=== PATIENT | female | born 1940 | race Caucasian/White ===

== ENCOUNTER 2020-06-02 15:31 | Emergency (ER) | payer MEDICARE, MEDICAID ==
[~2020-06-02] VITALS: Ht 152.4 cm; Wt 61.2 kg
[2020-06-02 16:33] LABS: HEMATOCRIT 38.2 % (37.0-47.0); MEAN CORPUSCULAR HGB 27.7 pg (27.0-31.0); MEAN CORPUSCULAR HGB CONC 30.1 g/dl (33.0-37.0); MEAN PLATELET VOLUME 9.8 fl (9.6-12.3); PLATELET COUNT AUTOMATED 189 10*3/uL (130-400); RED BLOOD COUNT 4.15 10*6/uL (4.10-5.10); RED CELL DISTRI WIDTH 21.2 % (0-14.5); WHITE BLOOD COUNT 10.6 10*3/uL (4.8-10.8)
[2020-06-02 16:53] LABS: ALKALINE PHOSPHATASE 125 U/L (45-117); BUN 19 mg/dl (7-24); CHLORIDE 105 mmol/L (98-107); CREATININE 1.13 mg/dL (0.55-1.02); LIPASE 50 U/L (73-393); POTASSIUM 4.6 mmol/L (3.5-5.1); SGOT/AST 23 IU/L (3-35); SGPT/ALT 16 U/L (12-78); SODIUM 136 mmol/L (136-145); TOTAL PROTEIN 7.8 gm/dL (6.4-8.2)
[2020-06-02 16:55] LABS: TROPONIN I < 0.015 ng/ml (<0.045)
[2020-06-02 17:15] LABS: TOTAL CELLS COUNTED 100 #CELLS
[2020-06-02 17:17] LABS: PLATELET SUFFICIENCY NORMAL (NORMAL)
[2020-06-02 17:37] LABS: BILIRUBIN Negative (Negative); BLOOD 3+ (Negative); CLARITY Turbid (Clear); COLOR Dark Yellow (Yellow); GLUCOSE Negative (Negative); KETONE Trace (Negative); LEUKO ESTERASE 3+ (Negative); NITRITE Positive (Negative); SPECIFIC GRAVITY 1.015 (1.001-1.030)
[2020-06-02 17:39] LABS: ACT PARTIAL THROMBO TIME 24.1 SECONDS (20.0-32.1); INTERNATIONAL NORM RATIO 1.1 (2.0-3.5)
[2020-06-02 17:58] LABS: WBC TNTC wbc/hpf (0-5)
[2020-06-02] MEDS ORDERED: CIPRO250 MG PO (17:58)
== END 2020-06-02 18:03 | disposition other institution (70) ==
LOC: ED 15:31
PROVIDERS: Emergency Medicine
DX: N39.0 Urinary tract infection, site not specified (principal)

== ENCOUNTER → 2021-04-18 | Outpatient (CLI) | payer MEDICARE, MEDICAID ==
[~2021-04-18] MED LIST: CIPRO250 MG PO
== END | disposition home or self-care (01) ==
LOC: MRI 09:00
PROVIDERS: ATTEND Internal Medicine
DX: M17.11 Unilateral primary osteoarthritis, right knee (principal); M25.461 Effusion, right knee; M71.21 Synovial cyst of popliteal space [Baker], right knee

== ENCOUNTER → 2021-05-13 | Outpatient (CLI) | payer MEDICARE, MEDICAID | END | disposition home or self-care (01) | LOC: ORTHO 00:33 | PROVIDERS: ATTEND Orthopaedic Surgery | DX: M17.11 Unilateral primary osteoarthritis, right knee (principal); M25.761 Osteophyte, right knee ==

== ENCOUNTER → 2021-06-15 | Outpatient (CLI) | payer MEDICARE, MEDICAID | LOC: ORTHO 00:28 | PROVIDERS: ATTEND Orthopaedic Surgery | DX: M47.817 Spondylosis without myelopathy or radiculopathy, lumbosacral region (principal); I70.0 Atherosclerosis of aorta; M48.062 Spinal stenosis, lumbar region with neurogenic claudication; M85.88 Other specified disorders of bone density and structure, other site; Z90.49 Acquired absence of other specified parts of digestive tract; Z96.662 Presence of left artificial ankle joint ==

== ENCOUNTER 2022-11-12 10:21 | Emergency (ER) | payer MEDICARE, MEDICAID ==
[~2022-11-12] VITALS: Ht 149.8 cm; Wt 74.8 kg
[2022-11-12 10:57] LABS: HEMATOCRIT 40.3 % (37.0-47.0); MEAN CELL VOLUME 99.5 fl (81.0-99.0); MEAN CORPUSCULAR HGB 32.6 pg (27.0-31.0); MEAN CORPUSCULAR HGB CONC 32.8 g/dl (33.0-37.0); MEAN PLATELET VOLUME 9.5 fl (9.6-12.3); PLATELET COUNT AUTOMATED 268 10*3/uL (130-400); RED BLOOD COUNT 4.05 10*6/uL (4.10-5.10); RED CELL DISTRI WIDTH 13.9 % (0-14.5)
[2022-11-12 11:01] LABS: MANUAL DIFF REFLEX YES
[2022-11-12 11:10] LABS: ACT PARTIAL THROMBO TIME 24.1 SECONDS (20.0-32.1); INTERNATIONAL NORM RATIO 1.1 (2.0-3.5)
[2022-11-12 11:13] LABS: ALKALINE PHOSPHATASE 79 U/L (46-116); BUN 17 mg/dl (9-23); CHLORIDE 102 mmol/L (98-107); POTASSIUM 3.9 mmol/L (3.4-5.1); SGPT/ALT 15 U/L (10-49); TOTAL PROTEIN 6.4 gm/dL (6.0-8.0)
[2022-11-12 11:33] LABS: PLATELET SUFFICIENCY NORMAL (NORMAL); TOTAL CELLS COUNTED 100 #CELLS
[2022-11-12 11:55] LABS: BILIRUBIN Negative (Negative); BLOOD Negative (Negative); CLARITY Clear (Clear); COLOR Yellow (Yellow); GLUCOSE Negative (Negative); KETONE Negative (Negative); LEUKO ESTERASE Negative (Negative); NITRITE Negative (Negative); UROBILINOGEN 0.2 E.U./dl (0.0-1.0)
[2022-11-12 12:08] LABS: RBC 0-2 rbc/hpf (0-2); WBC 0-2 wbc/hpf (0-5)
== END 2022-11-12 14:04 ==
LOC: ED 10:21
PROVIDERS: Emergency Medicine
DX: S80.12XA Contusion of left lower leg, initial encounter (principal); S80.11XA Contusion of right lower leg, initial encounter; B34.9 Viral infection, unspecified; X50.1XXA Overexertion from prolonged static or awkward postures, initial encounter; Y93.89 Activity, other specified; Y92.129 Unspecified place in nursing home as the place of occurrence of the external cause

== ENCOUNTER 2023-02-11 16:27 | Emergency (ER) | payer MEDICARE, MEDICAID ==
[2023-02-11] MEDS ORDERED: CLARITIN10 MG PO (16:46)
[2023-02-11] MEDS ORDERED: CELEXA20 MG PO (16:46)
[2023-02-11 16:47] LABS: HEMATOCRIT 43.3 % (37.0-47.0); MEAN CELL VOLUME 104.8 fl (81.0-99.0); MEAN CORPUSCULAR HGB 34.1 pg (27.0-31.0); MEAN CORPUSCULAR HGB CONC 32.6 g/dl (33.0-37.0); MEAN PLATELET VOLUME 9.3 fl (9.6-12.3); PLATELET COUNT AUTOMATED 217 10*3/uL (130-400); RED BLOOD COUNT 4.13 10*6/uL (4.10-5.10); RED CELL DISTRI WIDTH 13.5 % (0-14.5); WHITE BLOOD COUNT 13.1 10*3/uL (4.8-10.8)
[2023-02-11] MEDS ORDERED: FEROSUL325 MG PO (16:49)
[2023-02-11] MEDS ORDERED: FUROSEMIDE40 MG PO (16:49)
[2023-02-11] MEDS ORDERED: NEURONTIN100 MG PO (16:50)
[2023-02-11] MEDS ORDERED: LIDOCAINE PAIN1 EACH T (16:51)
[2023-02-11] MEDS ORDERED: MAGNESIUM OXID400 MG PO (16:51)
[2023-02-11] MEDS ORDERED: MELATONIN10 M2 PO (16:52)
[2023-02-11] MEDS ORDERED: HYDROCODONE-AC1 EAC2 PO (16:54)
[2023-02-11] MEDS ORDERED: Lopressor25 MG PO (16:54)
[2023-02-11] MEDS ORDERED: METOPROLOL TART50 M1 PO (16:54)
[2023-02-11] MEDS ORDERED: NORVASC5 MG PO (16:55)
[2023-02-11 16:56] LABS: MANUAL DIFF REFLEX YES
[2023-02-11 17:05] LABS: ACT PARTIAL THROMBO TIME 31.5 SECONDS (20.0-32.1); INTERNATIONAL NORM RATIO 1.1 (2.0-3.5)
[2023-02-11] MEDS ORDERED: PREDNISONE2.5 MG PO (17:05)
[2023-02-11] MEDS ORDERED: PROTONIX40 MG PO (17:06)
[2023-02-11 17:07] LABS: ALKALINE PHOSPHATASE 105 U/L (46-116); BUN 17 mg/dl (9-23); CHLORIDE 105 mmol/L (98-107); LIPASE 28 U/L (12-53); SGPT/ALT 9 U/L (10-49); TOTAL PROTEIN 6.6 gm/dL (6.0-8.0)
[2023-02-11] MEDS ORDERED: BENZONATATE100 M1 PO (17:07)
[2023-02-11] MEDS ORDERED: TOPAMAX25 M3 PO (17:07)
[2023-02-11 17:17] LABS: PLATELET SUFFICIENCY NORMAL (NORMAL); TOTAL CELLS COUNTED 100 #CELLS
== END 2023-02-11 19:50 ==
LOC: ED 16:27
PROVIDERS: Internal Medicine
DX: R51.9 Headache, unspecified (principal); M54.2 Cervicalgia; M54.9 Dorsalgia, unspecified; Z79.899 Other long term (current) drug therapy; W18.11XA Fall from or off toilet without subsequent striking against object, initial encounter; Y93.89 Activity, other specified; Y92.128 Other place in nursing home as the place of occurrence of the external cause; Y99.8 Other external cause status

== ENCOUNTER 2023-02-20 16:08 | Emergency (ER) | payer MEDICARE, MEDICAID ==
[~2023-02-20] VITALS: Ht 157.4 cm; Wt 69.4 kg
[~2023-02-20 16:08] MED LIST changes: +BENZONATATE100 M1 PO; +CELEXA20 MG PO; +CLARITIN10 MG PO; +FEROSUL325 MG PO; +FUROSEMIDE40 MG PO; +HYDROCODONE-AC1 EAC2 PO; +LIDOCAINE PAIN1 EACH T; +Lopressor25 MG PO; +MAGNESIUM OXID400 MG PO; +MELATONIN10 M2 PO; +METOPROLOL TART50 M1 PO; +NEURONTIN100 MG PO; +NORVASC5 MG PO; +PREDNISONE2.5 MG PO; +PROTONIX40 MG PO; +TOPAMAX25 M3 PO
== END 2023-02-20 22:57 | disposition home or self-care (01) ==
LOC: ED 16:08
DX: S73.102A Unspecified sprain of left hip, initial encounter (principal); R07.81 Pleurodynia; W19.XXXA Unspecified fall, initial encounter; Y93.89 Activity, other specified; Y92.89 Other specified places as the place of occurrence of the external cause; Y99.8 Other external cause status

== ENCOUNTER 2023-05-17 12:23 | Inpatient (IN) | payer OTHER, MEDICAID ==
[~2023-05-17] VITALS: Ht 157.5 cm; Wt 73.1 kg
[2023-05-17] VITALS (19 sets, daily range): BP systolic 78–142; BP diastolic 42–78
[2023-05-17 13:01] LABS: BASO # 0.1 10*3/uL (0.0-0.1); BASO % 0.8 % (0.0-1.0); EOS # 0.1 10*3/uL (0.0-0.4); EOS % 1.4 % (1.0-4.0); HEMATOCRIT 41.3 % (37.0-47.0); LYMPH # 0.8 10*3/uL (1.3-4.4); LYMPH % 9.8 % (27.0-41.0); MEAN CELL VOLUME 105.1 fl (81.0-99.0); MEAN CORPUSCULAR HGB 33.6 pg (27.0-31.0); MEAN PLATELET VOLUME 9.7 fl (9.6-12.3); MONO # 0.9 10*3/uL (0.1-1.0); MONO % 10.8 % (3.0-9.0); NEUT # 6.1 10*3/uL (2.3-7.9); NEUT % 76.4 % (47.0-73.0); PLATELET COUNT AUTOMATED 218 10*3/uL (130-400); RED BLOOD COUNT 3.93 10*6/uL (4.10-5.10); RED CELL DISTRI WIDTH 16.3 % (0-14.5)
[2023-05-17 13:12] LABS: ACT PARTIAL THROMBO TIME 26.9 SECONDS (20.0-32.1)
[2023-05-17 13:22] LABS: POTASSIUM 4.8 mmol/L (3.4-5.1); TOTAL PROTEIN 6.1 gm/dL (6.0-8.0)
[2023-05-17 14:26] LABS: BILIRUBIN Negative (Negative); BLOOD Negative (Negative); CLARITY Clear (Clear); COLOR Dark Yellow (Yellow); GLUCOSE Negative (Negative); KETONE Trace (Negative); LEUKO ESTERASE 1+ (Negative); NITRITE Negative (Negative); SPECIFIC GRAVITY 1.025 (1.001-1.030)
[2023-05-17 14:44] LABS: BACTERIA 2+; CALCIUM OXALATE CRYSTALS Trace; WBC 31-40 wbc/hpf (0-5)
[2023-05-17] MEDS ORDERED: BIOTENE DRY M1000 ML MM (17:06)
[2023-05-17] MEDS ORDERED: VITAMIN D3250 MC2 PO (17:08)
[2023-05-17] MEDS ORDERED: CELECOXIB200 M1 PO (17:09)
[2023-05-17] MEDS ORDERED: CEPACOL SORE T1 EACH MM (17:10)
[2023-05-17] MEDS ORDERED: DICYCLOMINE HYD10 MG PO (17:12)
[2023-05-17] MEDS ORDERED: MIRALAX119 GM PO (17:14)
[2023-05-17] MEDS ORDERED: ROPINIROLE HYD0.5 MG PO (17:22)
[2023-05-17] MEDS ORDERED: POTASSIUM CHLO20 ME3 PO (17:22)
[2023-05-17] MEDS ORDERED: SENNA8.6 MG PO (17:23)
[2023-05-17] MEDS ORDERED: SYSTANE 0.3-0.415 ML OP (17:23)
[2023-05-17] MEDS ORDERED: BENZONATATE100 M1 PO (17:24)
[2023-05-17] MEDS ORDERED: TYLENOL325 M1 PO (17:25)
[2023-05-17] MEDS ORDERED: TUBERSOL1 M1 IC (17:25)
[2023-05-17] MEDS ORDERED: TUSSIN100 MG/51 PO (17:25)
[2023-05-17] MEDS ORDERED: VOLTAREN ARTHRI20 GM TP (17:26)
[2023-05-18] VITALS (84 sets, daily range): BP systolic 68–118; BP diastolic 39–89
[2023-05-18 06:36] LABS: HEMATOCRIT 37.8 % (37.0-47.0); MEAN CELL VOLUME 106.5 fl (81.0-99.0); MEAN PLATELET VOLUME 9.5 fl (9.6-12.3); PLATELET COUNT AUTOMATED 189 10*3/uL (130-400); RED BLOOD COUNT 3.55 10*6/uL (4.10-5.10); RED CELL DISTRI WIDTH 16.6 % (0-14.5); WHITE BLOOD COUNT 12.1 10*3/uL (4.8-10.8)
[2023-05-18 06:37] LABS: MANUAL DIFF REFLEX YES
[2023-05-18 06:47] LABS: ACT PARTIAL THROMBO TIME 28.5 SECONDS (20.0-32.1)
[2023-05-18 07:24] LABS: FREE T4 1.19 ng/dl (0.89-1.76); POTASSIUM 3.9 mmol/L (3.4-5.1); TOTAL PROTEIN 5.3 gm/dL (6.0-8.0)
[2023-05-18 07:42] LABS: VITAMIN D, 25-HYDROXY 16.9 ng/mL (30-100)
[2023-05-18 07:51] LABS: PLATELET SUFFICIENCY NORMAL (NORMAL); TOTAL CELLS COUNTED 100 #CELLS
[2023-05-19] VITALS (10 sets, daily range): BP systolic 90–143; BP diastolic 56–97
[2023-05-19 05:23] LABS: POTASSIUM 3.9 mmol/L (3.4-5.1); TOTAL PROTEIN 5.5 gm/dL (6.0-8.0)
[2023-05-19 06:21] LABS: BASO # 0.1 10*3/uL (0.0-0.1); BASO % 0.6 % (0.0-1.0); EOS # 0.6 10*3/uL (0.0-0.4); EOS % 4.3 % (1.0-4.0); HEMATOCRIT 41.9 % (37.0-47.0); LYMPH # 0.5 10*3/uL (1.3-4.4); LYMPH % 3.6 % (27.0-41.0); MEAN CELL VOLUME 106.9 fl (81.0-99.0); MEAN CORPUSCULAR HGB 33.2 pg (27.0-31.0); MEAN PLATELET VOLUME 10.7 fl (9.6-12.3); MONO # 0.6 10*3/uL (0.1-1.0); MONO % 4.6 % (3.0-9.0); NEUT # 11.1 10*3/uL (2.3-7.9); PLATELET COUNT AUTOMATED 188 10*3/uL (130-400); RED BLOOD COUNT 3.92 10*6/uL (4.10-5.10); RED CELL DISTRI WIDTH 17.2 % (0-14.5); WHITE BLOOD COUNT 12.9 10*3/uL (4.8-10.8)
[2023-05-20] VITALS: BP 103/66
[2023-05-20 04:00] VITALS: BP 100/76
[2023-05-20 05:46] LABS: POTASSIUM 4.6 mmol/L (3.4-5.1); TOTAL PROTEIN 5.5 gm/dL (6.0-8.0)
[2023-05-20 06:13] LABS: BASO # 0.1 10*3/uL (0.0-0.1); BASO % 0.5 % (0.0-1.0); EOS # 0.6 10*3/uL (0.0-0.4); EOS % 4.8 % (1.0-4.0); HEMATOCRIT 42.2 % (37.0-47.0); LYMPH # 0.6 10*3/uL (1.3-4.4); LYMPH % 4.7 % (27.0-41.0); MEAN CELL VOLUME 107.4 fl (81.0-99.0); MEAN CORPUSCULAR HGB 33.1 pg (27.0-31.0); MEAN CORPUSCULAR HGB CONC 30.8 g/dl (33.0-37.0); MEAN PLATELET VOLUME 10.6 fl (9.6-12.3); MONO # 0.9 10*3/uL (0.1-1.0); MONO % 6.8 % (3.0-9.0); NEUT # 10.8 10*3/uL (2.3-7.9); NEUT % 82.4 % (47.0-73.0); PLATELET COUNT AUTOMATED 187 10*3/uL (130-400); RED BLOOD COUNT 3.93 10*6/uL (4.10-5.10); RED CELL DISTRI WIDTH 17.1 % (0-14.5); WHITE BLOOD COUNT 13.1 10*3/uL (4.8-10.8)
[2023-05-20 08:00] VITALS: BP 99/72
[2023-05-20 12:00] VITALS: BP 99/66
[2023-05-20 16:00] VITALS: BP 125/78
[2023-05-20 20:00] VITALS: BP 130/78
[2023-05-21] VITALS: BP 113/82
[2023-05-21 06:22] LABS: HEMATOCRIT 40.4 % (37.0-47.0); MEAN CELL VOLUME 108.9 fl (81.0-99.0); MEAN CORPUSCULAR HGB 33.2 pg (27.0-31.0); MEAN CORPUSCULAR HGB CONC 30.4 g/dl (33.0-37.0); MEAN PLATELET VOLUME 10.2 fl (9.6-12.3); PLATELET COUNT AUTOMATED 156 10*3/uL (130-400); RED BLOOD COUNT 3.71 10*6/uL (4.10-5.10); RED CELL DISTRI WIDTH 17.3 % (0-14.5)
[2023-05-21 06:25] LABS: MANUAL DIFF REFLEX YES
[2023-05-21 06:27] LABS: POTASSIUM 4.3 mmol/L (3.4-5.1)
[2023-05-21 07:00] LABS: BASOPHILS 1 % (0-1); TOTAL CELLS COUNTED 100 #CELLS
[2023-05-21 07:01] LABS: BURR CELLS MODERATE; PLATELET SUFFICIENCY NORMAL (NORMAL); POLYCHROMASIA SLIGHT; TOXIC GRANULATION SLIGHT
[2023-05-21 08:00] VITALS: BP 134/68
[2023-05-21 12:00] VITALS: BP 139/91
[2023-05-21 16:19] VITALS: BP 115/76
[2023-05-21 20:00] VITALS: BP 92/72
[2023-05-22] VITALS: BP 101/53
[2023-05-22 04:00] VITALS: BP 125/70
[2023-05-22 06:15] LABS: POTASSIUM 4.5 mmol/L (3.4-5.1)
[2023-05-22 06:41] LABS: HEMATOCRIT 40.8 % (37.0-47.0); MEAN CELL VOLUME 108.5 fl (81.0-99.0); MEAN CORPUSCULAR HGB 33.2 pg (27.0-31.0); MEAN CORPUSCULAR HGB CONC 30.6 g/dl (33.0-37.0); MEAN PLATELET VOLUME 10.7 fl (9.6-12.3); PLATELET COUNT AUTOMATED 172 10*3/uL (130-400); RED BLOOD COUNT 3.76 10*6/uL (4.10-5.10); RED CELL DISTRI WIDTH 17.2 % (0-14.5); WHITE BLOOD COUNT 7.7 10*3/uL (4.8-10.8)
[2023-05-22 06:43] LABS: MANUAL DIFF REFLEX YES
[2023-05-22 07:21] LABS: TOTAL CELLS COUNTED 100 #CELLS
[2023-05-22 07:27] LABS: BURR CELLS FEW; POLYCHROMASIA SLIGHT
[2023-05-22 07:28] LABS: PLATELET SUFFICIENCY NORMAL (NORMAL); ROULEAUX SLIGHT; TOXIC GRANULATION SLIGHT
[2023-05-22 08:00] VITALS: BP 130/67
[2023-05-22 12:00] VITALS: BP 124/77
[2023-05-22 16:00] VITALS: BP 121/71
[2023-05-22] MEDS ORDERED: CALCIUM PLUS M1 EAC1 PO (16:22)
[2023-05-22] MEDS ORDERED: DICYCLOMINE HYD10 MG PO (16:26)
[2023-05-22] MEDS ORDERED: NEURONTIN100 MG PO (16:35)
[2023-05-22] MEDS ORDERED: PERCOCET 10-321 EACH PO ×2 (16:37→16:38)
[2023-05-22] MEDS ORDERED: ONDANSETRON HYDR4 M1 PO (16:45)
[2023-05-22 20:00] VITALS: BP 148/58
[2023-05-23] VITALS: BP 128/68
[2023-05-23 05:58] LABS: BUN 19 mg/dl (9-23); CHLORIDE 111 mmol/L (98-107)
[2023-05-23 06:30] LABS: BASO # 0.1 10*3/uL (0.0-0.1); BASO % 1.3 % (0.0-1.0); EOS # 0.3 10*3/uL (0.0-0.4); EOS % 4.9 % (1.0-4.0); HEMATOCRIT 39.3 % (37.0-47.0); LYMPH % 19.5 % (27.0-41.0); MEAN CORPUSCULAR HGB CONC 30.5 g/dl (33.0-37.0); MEAN PLATELET VOLUME 10.3 fl (9.6-12.3); MONO # 0.8 10*3/uL (0.1-1.0); MONO % 15.2 % (3.0-9.0); PLATELET COUNT AUTOMATED 156 10*3/uL (130-400); RED BLOOD COUNT 3.64 10*6/uL (4.10-5.10); RED CELL DISTRI WIDTH 17.1 % (0-14.5); WHITE BLOOD COUNT 5.3 10*3/uL (4.8-10.8)
[2023-05-23 08:00] VITALS: BP 180/91
[2023-05-23 12:00] VITALS: BP 144/81
[2023-05-23 16:00] VITALS: BP 146/90
[2023-05-23 20:00] VITALS: BP 144/83
[2023-05-24] VITALS: BP 147/77
[2023-05-24 06:21] LABS: BUN 19 mg/dl (9-23); CHLORIDE 111 mmol/L (98-107); POTASSIUM 3.5 mmol/L (3.4-5.1)
[2023-05-24 08:00] VITALS: BP 146/74
[2023-05-24 12:00] VITALS: BP 154/72
[2023-05-24 16:00] VITALS: BP 131/94
[2023-05-24 20:00] VITALS: BP 133/84
[2023-05-25] VITALS: BP 144/7
[2023-05-25 06:06] LABS: HEMATOCRIT 39.4 % (37.0-47.0); MEAN CELL VOLUME 110.4 fl (81.0-99.0); MEAN CORPUSCULAR HGB 33.3 pg (27.0-31.0); MEAN CORPUSCULAR HGB CONC 30.2 g/dl (33.0-37.0); MEAN PLATELET VOLUME 10.9 fl (9.6-12.3); PLATELET COUNT AUTOMATED 149 10*3/uL (130-400); RED BLOOD COUNT 3.57 10*6/uL (4.10-5.10); RED CELL DISTRI WIDTH 17.2 % (0-14.5); WHITE BLOOD COUNT 5.3 10*3/uL (4.8-10.8)
[2023-05-25 06:20] LABS: ALKALINE PHOSPHATASE 71 U/L (46-116); BUN 13 mg/dl (9-23); CHLORIDE 112 mmol/L (98-107); LIPASE 43 U/L (12-53); POTASSIUM 3.4 mmol/L (3.4-5.1); SGPT/ALT 9 U/L (5-49); TOTAL PROTEIN 4.8 gm/dL (6.0-8.0)
[2023-05-25 06:33] LABS: MANUAL DIFF REFLEX YES
[2023-05-25 07:44] LABS: ATYPICAL LYMPHS 1 % (0-0); BASOPHILS 2 % (0-1); PLATELET SUFFICIENCY NORMAL (NORMAL); TOTAL CELLS COUNTED 100 #CELLS
[2023-05-25 08:00] VITALS: BP 132/98
[2023-05-25 12:00] VITALS: BP 133/83
[2023-05-25 16:00] VITALS: BP 133/72
[2023-05-25 20:00] VITALS: BP 117/76
[2023-05-26 06:41] LABS: HEMATOCRIT 42.4 % (37.0-47.0); MEAN CELL VOLUME 107.9 fl (81.0-99.0); MEAN CORPUSCULAR HGB 32.6 pg (27.0-31.0); MEAN CORPUSCULAR HGB CONC 30.2 g/dl (33.0-37.0); NUCLEATED RED BLOOD CELL 0.5 % (0.0-0.0); RED BLOOD COUNT 3.93 10*6/uL (4.10-5.10); RED CELL DISTRI WIDTH 17.4 % (0-14.5); WHITE BLOOD COUNT 5.9 10*3/uL (4.8-10.8)
[2023-05-26 06:43] LABS: MANUAL DIFF REFLEX YES; PLATELET COUNT AUTOMATED 208 10*3/uL (130-400)
[2023-05-26 06:57] LABS: BASOPHILS 2 % (0-1); PLATELET SUFFICIENCY NORMAL (NORMAL); TOTAL CELLS COUNTED 100 #CELLS
[2023-05-26 06:58] LABS: BURR CELLS FEW; OVALOCYTES FEW
[2023-05-26 08:00] VITALS: BP 110/64
[2023-05-26 08:07] LABS: ALKALINE PHOSPHATASE 77 U/L (46-116); BUN 15 mg/dl (9-23); CHLORIDE 110 mmol/L (98-107); POTASSIUM 3.8 mmol/L (3.4-5.1); SGPT/ALT 9 U/L (5-49); TOTAL PROTEIN 5.2 gm/dL (6.0-8.0)
[2023-05-26 12:00] VITALS: BP 112/66
[2023-05-26 16:00] VITALS: BP 114/67
[2023-05-26 20:00] VITALS: BP 132/88
[2023-05-27] VITALS: BP 134/80
[2023-05-27 04:20] LABS: HEMATOCRIT 37.7 % (37.0-47.0); MEAN CELL VOLUME 105.6 fl (81.0-99.0); MEAN CORPUSCULAR HGB 32.5 pg (27.0-31.0); MEAN CORPUSCULAR HGB CONC 30.8 g/dl (33.0-37.0); MEAN PLATELET VOLUME 10.9 fl (9.6-12.3); NUCLEATED RED BLOOD CELL 0.3 % (0.0-0.0); PLATELET COUNT AUTOMATED 194 10*3/uL (130-400); RED BLOOD COUNT 3.57 10*6/uL (4.10-5.10); WHITE BLOOD COUNT 6.1 10*3/uL (4.8-10.8)
[2023-05-27 04:22] LABS: MANUAL DIFF REFLEX YES
[2023-05-27 05:17] LABS: BURR CELLS FEW; PLATELET SUFFICIENCY NORMAL (NORMAL); SPHEROCYTES FEW; TOTAL CELLS COUNTED 100 #CELLS
[2023-05-27 08:00] VITALS: BP 105/67
[2023-05-27 12:00] VITALS: BP 98/57
[2023-05-27 16:00] VITALS: BP 110/67
[2023-05-27 20:00] VITALS: BP 118/68
[2023-05-28 05:20] LABS: BUN 13 mg/dl (9-23); CHLORIDE 112 mmol/L (98-107); POTASSIUM 3.1 mmol/L (3.4-5.1)
[2023-05-28 07:26] LABS: BASO # 0.1 10*3/uL (0.0-0.1); EOS # 0.4 10*3/uL (0.0-0.4); EOS % 5.6 % (1.0-4.0); HEMATOCRIT 38.8 % (37.0-47.0); LYMPH # 1.2 10*3/uL (1.3-4.4); MEAN CELL VOLUME 105.1 fl (81.0-99.0); MEAN CORPUSCULAR HGB 33.1 pg (27.0-31.0); MEAN CORPUSCULAR HGB CONC 31.4 g/dl (33.0-37.0); MEAN PLATELET VOLUME 10.6 fl (9.6-12.3); MONO # 0.6 10*3/uL (0.1-1.0); MONO % 8.9 % (3.0-9.0); NEUT # 4.6 10*3/uL (2.3-7.9); NEUT % 65.5 % (47.0-73.0); NUCLEATED RED BLOOD CELL 0.4 % (0.0-0.0); PLATELET COUNT AUTOMATED 195 10*3/uL (130-400); RED BLOOD COUNT 3.69 10*6/uL (4.10-5.10); RED CELL DISTRI WIDTH 17.1 % (0-14.5)
[2023-05-28 08:00] VITALS: BP 100/77
[2023-05-28 12:00] VITALS: BP 98/58
[2023-05-28 16:00] VITALS: BP 103/61
[2023-05-28 20:00] VITALS: BP 110/67
[2023-05-29] VITALS: BP 112/68
[2023-05-29 06:44] LABS: BASO # 0.1 10*3/uL (0.0-0.1); EOS # 0.4 10*3/uL (0.0-0.4); EOS % 4.4 % (1.0-4.0); HEMATOCRIT 40.6 % (37.0-47.0); LYMPH # 1.5 10*3/uL (1.3-4.4); LYMPH % 18.3 % (27.0-41.0); MEAN CELL VOLUME 107.1 fl (81.0-99.0); MEAN CORPUSCULAR HGB 33.2 pg (27.0-31.0); MEAN PLATELET VOLUME 11.1 fl (9.6-12.3); MONO # 0.7 10*3/uL (0.1-1.0); MONO % 8.8 % (3.0-9.0); NEUT # 5.3 10*3/uL (2.3-7.9); NEUT % 65.9 % (47.0-73.0); NUCLEATED RED BLOOD CELL 0.4 % (0.0-0.0); PLATELET COUNT AUTOMATED 213 10*3/uL (130-400); RED BLOOD COUNT 3.79 10*6/uL (4.10-5.10); RED CELL DISTRI WIDTH 17.2 % (0-14.5)
[2023-05-29 06:51] LABS: BUN 13 mg/dl (9-23); CHLORIDE 110 mmol/L (98-107); POTASSIUM 3.8 mmol/L (3.4-5.1)
[2023-05-29 08:00] VITALS: BP 101/73
[2023-05-29 12:00] VITALS: BP 107/63
[2023-05-29 16:00] VITALS: BP 109/68
[2023-05-29 20:00] VITALS: BP 112/75
[2023-05-30] VITALS: BP 114/82
[2023-05-30 06:08] LABS: BUN 13 mg/dl (9-23); CHLORIDE 109 mmol/L (98-107); POTASSIUM 3.3 mmol/L (3.4-5.1)
[2023-05-30 08:00] VITALS: BP 119/68
[2023-05-30 12:00] VITALS: BP 131/80
[2023-05-30 16:00] VITALS: BP 123/77
[2023-05-30 20:00] VITALS: BP 127/79
[2023-05-31] VITALS: BP 128/81
[2023-05-31 08:00] VITALS: BP 147/92
[2023-05-31 12:00] VITALS: BP 138/88
[2023-05-31 16:00] VITALS: BP 155/85
[2023-05-31 20:00] VITALS: BP 150/84
[2023-06-01] VITALS: BP 125/86
[2023-06-01 08:00] VITALS: BP 153/89
[2023-06-01 12:00] VITALS: BP 153/91
[2023-06-01 16:00] VITALS: BP 141/89
[2023-06-01 20:00] VITALS: BP 140/62
[2023-06-02] VITALS: BP 122/88
[2023-06-02 06:31] LABS: BUN 13 mg/dl (9-23); CHLORIDE 111 mmol/L (98-107); POTASSIUM 2.6 mmol/L (3.4-5.1)
[2023-06-02 06:38] LABS: BASO # 0.1 10*3/uL (0.0-0.1); BASO % 1.1 % (0.0-1.0); EOS # 0.2 10*3/uL (0.0-0.4); EOS % 3.1 % (1.0-4.0); HEMATOCRIT 37.1 % (37.0-47.0); LYMPH # 1.1 10*3/uL (1.3-4.4); LYMPH % 14.5 % (27.0-41.0); MEAN CELL VOLUME 102.2 fl (81.0-99.0); MEAN CORPUSCULAR HGB 32.8 pg (27.0-31.0); MEAN CORPUSCULAR HGB CONC 32.1 g/dl (33.0-37.0); MEAN PLATELET VOLUME 11.2 fl (9.6-12.3); MONO # 0.9 10*3/uL (0.1-1.0); MONO % 12.3 % (3.0-9.0); NEUT # 5.1 10*3/uL (2.3-7.9); NEUT % 68.1 % (47.0-73.0); NUCLEATED RED BLOOD CELL 0.3 % (0.0-0.0); PLATELET COUNT AUTOMATED 227 10*3/uL (130-400); RED BLOOD COUNT 3.63 10*6/uL (4.10-5.10); RED CELL DISTRI WIDTH 17.2 % (0-14.5); WHITE BLOOD COUNT 7.5 10*3/uL (4.8-10.8)
[2023-06-02 08:00] VITALS: BP 151/90
[2023-06-02 12:00] VITALS: BP 148/50
[2023-06-02 16:00] VITALS: BP 143/89
[2023-06-02 20:00] VITALS: BP 150/90
[2023-06-03] VITALS: BP 157/90
[2023-06-03 03:58] LABS: BILIRUBIN Negative (Negative); BLOOD 2+ (Negative); CLARITY Cloudy (Clear); COLOR Dark Yellow (Yellow); GLUCOSE Negative (Negative); KETONE Trace (Negative); LEUKO ESTERASE 2+ (Negative); NITRITE Negative (Negative); PH 5.5 (4.5-8.0); SPECIFIC GRAVITY 1.025 (1.001-1.030)
[2023-06-03 04:10] LABS: EPITHELIAL CELLS TNTC; YEAST 3+
[2023-06-03 04:11] LABS: RBC 16-20 rbc/hpf (0-2); WBC 31-40 wbc/hpf (0-5)
[2023-06-03 05:23] VITALS: BP 118/75
[2023-06-03 07:32] LABS: ALKALINE PHOSPHATASE 72 U/L (46-116); BUN 19 mg/dl (9-23); CHLORIDE 109 mmol/L (98-107); POTASSIUM 2.7 mmol/L (3.4-5.1); SGPT/ALT 11 U/L (5-49); TOTAL PROTEIN 4.7 gm/dL (6.0-8.0)
[2023-06-03 08:00] VITALS: BP 148/85
[2023-06-03 12:00] VITALS: BP 107/65
[2023-06-03 16:00] VITALS: BP 106/62
[2023-06-03 20:00] VITALS: BP 104/61
[2023-06-04] VITALS: BP 103/57
[2023-06-04 05:58] VITALS: BP 102/48
[2023-06-04 06:16] LABS: ALKALINE PHOSPHATASE 73 U/L (46-116); BUN 28 mg/dl (9-23); CHLORIDE 104 mmol/L (98-107); POTASSIUM 3.4 mmol/L (3.4-5.1); SGPT/ALT 13 U/L (5-49)
[2023-06-04 08:00] VITALS: BP 103/63
[2023-06-04 12:00] VITALS: BP 129/82
[2023-06-04 16:00] VITALS: BP 127/78
[2023-06-04 20:00] VITALS: BP 98/60
[2023-06-05] VITALS: BP 99/51
[2023-06-05 06:50] LABS: ALKALINE PHOSPHATASE 70 U/L (46-116); BUN 31 mg/dl (9-23); CHLORIDE 102 mmol/L (98-107); POTASSIUM 3.8 mmol/L (3.4-5.1); TOTAL PROTEIN 4.8 gm/dL (6.0-8.0)
[2023-06-05 06:54] LABS: SGPT/ALT < 7 U/L (5-49)
[2023-06-05 08:00] VITALS: BP 123/55
[2023-06-05 12:00] VITALS: BP 108/66
[2023-06-05] MEDS ORDERED: LEVOFLOXACIN750 M2 PO (16:01)
[2023-06-05] MEDS ORDERED: NEURONTIN100 MG PO (16:01)
[2023-06-05] MEDS ORDERED: PERCOCET 10-321 EACH PO (16:01)
[2023-06-05] MEDS ORDERED: LOPRESSOR25 MG PO (16:01)
[2023-06-05] MEDS ORDERED: ELIQUIS5 M1 PO (16:01)
== END 2023-06-05 18:00 | DRG 177 ==
LOC: ED 12:23 → ICCU 14:12 → 4E 14:12 → EDHOLD 14:12 → ICCU 05-18 11:24 → 4E 05-23 02:47
PROVIDERS: Family Medicine; Internal Medicine; Physician Assistant Medical; Registered Nurse; Student in an Organized Health Care Education/Training Program; ADMIT Internal Medicine; ATTEND Internal Medicine
PROC: 02HV33Z Insertion of Infusion Device into Superior Vena Cava, Percutaneous Approach (ICD-10-PCS; 2023-05-18)
PROC: B548ZZA Ultrasonography of Superior Vena Cava, Guidance (ICD-10-PCS; 2023-05-18)
PROC: BD15YZZ Fluoroscopy of Upper GI using Other Contrast (ICD-10-PCS; principal; 2023-05-22)
DX: J69.0 Pneumonitis due to inhalation of food and vomit (principal); E43 Unspecified severe protein-calorie malnutrition; G93.41 Metabolic encephalopathy; J96.01 Acute respiratory failure with hypoxia; N17.0 Acute kidney failure with tubular necrosis; N39.0 Urinary tract infection, site not specified; E87.1 Hypo-osmolality and hyponatremia; I82.411 Acute embolism and thrombosis of right femoral vein; K21.9 Gastro-esophageal reflux disease without esophagitis; I10 Essential (primary) hypertension; Z66 Do not resuscitate; R41.0 Disorientation, unspecified; I25.10 Atherosclerotic heart disease of native coronary artery without angina pectoris; G89.4 Chronic pain syndrome; M54.50 Low back pain, unspecified; D75.89 Other specified diseases of blood and blood-forming organs; D50.9 Iron deficiency anemia, unspecified; S81.802A Unspecified open wound, left lower leg, initial encounter; S81.801A Unspecified open wound, right lower leg, initial encounter; M43.02 Spondylolysis, cervical region; I48.91 Unspecified atrial fibrillation; S22.070D Wedge compression fracture of T9-T10 vertebra, subsequent encounter for fracture with routine healing; Z68.26 Body mass index [BMI] 26.0-26.9, adult; W18.39XA Other fall on same level, initial encounter; Y93.89 Activity, other specified; Y92.89 Other specified places as the place of occurrence of the external cause; Y99.8 Other external cause status